=== PATIENT | male | born 1935 | race Caucasian/White ===

== ENCOUNTER 2021-01-21 20:18 | Inpatient (IN) | payer MEDICARE ==
[2021-01-21 22:39] LABS: #Lymphocytes 0.5 thou/uL (1.20-3.40); #Monocytes 0.2 thou/uL (0.11-0.59); #Neutrophils 4.9 thou/uL (1.40-6.50); %Eosinophils 0.4 % (0.0-10.0); %Lymphocytes 9.6 % (21.0-51.0); %Monocytes 2.7 % (0.0-10.0); %Neutrophils 87.4 % (42.0-75.0); Hemoglobin 12.2 g/dL (14.0-18.0); Mean Corpuscular HGB CONC 34.8 g/dL (32.0-36.0); Mean Corpuscular Hemoglobin 32.2 pg (27.0-31.0); Mean Corpuscular Volume 92.3 fL (78.0-98.0); Mean Platelet Volume 7.1 fL (7.4-10.4); Platelet Count 186 thou/uL (130-400); RBC Distribution Width 12.2 % (11.5-14.5); White Blood Cell (WBC) Count 5.6 thou/uL (4.8-10.8)
[2021-01-21 22:44] LABS: INR-International Normal Ratio 0.9; PTT 29.7 sec (22.9-36.1); Prothrombin Time 12.5 sec (12.0-14.7)
[2021-01-21] MEDS ORDERED: Ondansetron PF 4 MG/2 ML Vial IVP PRN (22:45)
[2021-01-21] MEDS ORDERED: Dextrose 50% Abboject 50 ML SYRINGE SLOW IVP PRN (22:45)
[2021-01-21] MEDS ORDERED: Morphine 2 MG/ML VIAL SLOW IVP PRN (22:45)
[2021-01-21] MEDS ORDERED: Dextrose 5% in Water 1,000 ML IV PRN (22:45)
[2021-01-21] MEDS ORDERED: hydrALAZINE 20 MG/ML VIAL SLOW IVP PRN (22:45)
[2021-01-21] MEDS ORDERED: Cyclobenzaprine 10 MG TAB PO PRN (22:48)
[2021-01-21] MEDS ORDERED: traMADol HCl 50 MG TAB PO PRN (22:48)
[2021-01-21 22:54] LABS: Lactic Acid 0.9 mmol/L (0.5-2.2)
[2021-01-21 23:00] LABS: ALT (SGPT) 22 U/L (8-55); AST (SGOT) 53 U/L (5-34); Albumin 2.9 g/dL (3.4-4.8); Alkaline Phosphatase 79 U/L (40-110); Anion Gap 14 mmol/L (10-20); BUN (Urea Nitrogen) 23 mg/dL (8.4-25.7); Calc. Creatinine Clearance 0 mL/min (70-130); Carbon Dioxide 30 mmol/L (23-31); Chloride 95 mmol/L (98-107); Globulin 2.4 g/dL (2.4-3.5); Glucose 144 mg/dL (83-110); Phosphorus 2.3 mg/dL (2.3-4.7); Protein, Total 5.3 g/dL (5.8-8.1); Sodium 136 mmol/L (136-145)
[2021-01-21 23:03] LABS: Calcium 5.8 mg/dL (7.8-10.44); Potassium 2.9 mmol/L (3.5-5.1)
[2021-01-22] MEDS: Sodium Chloride 0.9% 1,000 ML IV SCH ×2 (00:27→14:35)
[2021-01-22] MEDS ORDERED: Potassium Phosphate 30 MMOL in Sodium Chloride 0.9% 250 ML 250 ML IVPB SCH (00:30)
[2021-01-22] MEDS ORDERED: Magnesium 2 GM/50 ML 2 GM in Premix Bag 1 BAG IVPB SCH (00:30)
[2021-01-22] MEDS: Calcium Chloride 13.6 MEQ in Sodium Chloride 0.9% 100 ML IVPB SCH ×2 (00:30→01:58)
[2021-01-22 01:02] VITALS: BMI 24.0
--- NOTE | 2021-01-22 01:28 | HP ---
TRAUMA SURGEON: David Wilkerson MD CONSULTING PHYSICIAN: Dr. Martinez, Neurosurgery. HISTORY OF PRESENT ILLNESS: The patient is an 85-year-old male, who presents falling on Tuesday. The patient reports that he does not know the reason for his fall. He was initially seen earlier today at [place] [facility] and was transferred here as there was a concern for possible central cord syndrome. Family was present for the emergency room evaluation at [place], but not for my evaluation here. It was reported that the patient had bilateral hand paresthesias, and for that reason, central cord syndrome was suspected. Of note, the patient also has left-sided ribs 10 and 11 fractures and a left pleural effusion due to his fall. The emergency room provider at our hospital contacted Neurosurgery, evaluated the spinal films, they were not concerned. They recommended following up in their clinic in 2 weeks and if there was persistent symptoms that they would complete an MRI at that time. No further workup or management is recommended from Neurosurgery this evening. Upon my evaluation, the patient was awake and alert, sitting up a little uncomfortably in the emergency department. He had a C-collar on. Upon my evaluation, the patient had no cervical spinal tenderness and the cervical collar was discontinued. He denied shortness of breath or chest pain. He reports some back pain, especially whenever he coughs. He has a recent family history of COVID infection from the documentation from the outside provider, reports that the patient lost his spouse to COVID just last week and several members of his family are also infected with the virus. The patient did test positive for COVID this evening. It is also reported that he has had some decompensation over the past week as far as his energy level and food consumption. At the time of my evaluation, the patient denied nausea, abdominal pain, and diarrhea. He did report that he is not as strong as he normally is. He did not have any paresthesias at the time of my evaluation and had a generalized weakness. 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 This is not a new finding. He also has a T12 vertebral body fracture that is thought to be pathologic, which is unchanged from the last exam on August 28, 2020. My essential evaluation was that the patient was deconditioned and weakened from COVID infection and had some rib fractures and some mild back pain. He was saturating 95% or better on room air and had no respiratory symptoms. REVIEW OF SYSTEMS: All additional 10-point review of systems negative except as indicated above. PAST MEDICAL HISTORY: Prostate cancer with metastases to the thoracic spine, ribs, mandible, scapula and clavicles; dementia; arthritis; and COPD. PAST SURGICAL HISTORY: Bilateral knee replacements. MEDICATIONS: Unknown. The patient is a poor historian. ALLERGIES: NO KNOWN DRUG ALLERGIES. PHYSICAL EXAMINATION: VITAL SIGNS: Temperature 98.3, pulse 68, respirations 16, oxygen saturation 97% on room air, blood pressure 132/84. PRIMARY SURVEY: Airway intact. Adequate breath sounds bilaterally. 2+ pulses in the bilateral radials, femorals, and DPs. GCS 15. Gross motor and sensation intact. No abrasion, bruising, or external bleeding. SECONDARY SURVEY: HEAD: Normocephalic and atraumatic. No gross palpable skull deformities or tenderness. EYES: Pupils 3 to 2, equal, round, reactive to light bilaterally. ENT: No signs of trauma. C-SPINE: No step-offs or deformities. Nontender. C-collar in place. CHEST: Nontender. No crepitus, no abrasions or ecchymosis noted. ABDOMEN: Soft, nontender, nondistended. PELVIS: Stable to palpation, nontender. No abrasions or ecchymosis noted. RECTAL: Deferred. GENITOURINARY: Normal external genitalia. No blood at the meatus. EXTREMITIES: No gross deformities. No abrasions or ecchymosis noted. 2+ pulses in bilateral radials, femorals, and DPs. BACK/SPINE: No step-offs or deformities or tenderness to palpation of thoracic or lumbar spine. No abrasions or ecchymosis noted. The patient has some left lateral back tenderness. NEURO: The patient does have 5/5 strength in his bilateral upper and lower extremities. He has generalized overall weakness and he is deconditioned. LABORATORY FINDINGS: White count 5.6, hemoglobin 12.5, hematocrit 35.1, platelets 186. INR 0.9. PTT 29.7. Sodium 136, potassium 3.9, chloride 95, bicarb 30, BUN 23, creatinine 1.15, glucose 144. Lactic acid 0.9, calcium 5.8, phosphorus 2.3, magnesium 1.9, total bilirubin 1.0, AST 53, ALT 22, alkaline phosphatase 79, troponin 0.070 from 0.074, albumin 2.9. DIAGNOSTIC FINDINGS: CT scan of the brain demonstrates no CT evidence of acute intracranial process. CT scan of the C-spine demonstrates extensive diffuse osseous metastasis. No evidence of fracture or focal opacity in the left apex, correlate for pneumonia. CT scan of the chest, abdomen, and pelvis demonstrates lower left-sided rib fractures involving the left 10th through 12th ribs with two separate fractures involving the left posterior 10th and 11th fractures with medial fracture fragments demonstrating displacement, small left pleural effusion/pneumothorax which was thought to be passive atelectasis. Minimal patchy densities posterior aspect of the left upper lobe with right lung base also most likely related to volume loss. Pneumonitis of the left upper lobe would be difficult to entirely exclude. No acute findings in the abdomen or pelvis. Extensive and diffuse osseous sclerotic metastatic disease with probable pathologic fracture involving the T12 vertebral body. This is unchanged compared to the prior exam. Cholelithiasis and chronic diverticulosis. ASSESSMENT: 1. Status post mechanical fall from standing, delayed presentation. 2. Left-sided ribs 10 through 12 fractures. 3. Left pleural effusion/hemothorax. 4. Old T12 vertebral body pathological fracture, unchanged from last exam in August 2020. 5. Acute kidney injury, resolved. 6. Bilateral hand paresthesias, waxing and waning. 7. Coronavirus disease positive with no signs of COVID pneumonia at this time. 8. Acute hypokalemia and hypocalcemia. 9. Elevated troponin, etiology unclear. 10. History of metastatic prostate cancer with bone metastases, dementia, arthritis, and chronic obstructive pulmonary disease. PLAN: The patient is admitted to [facility] on the trauma service. He can go to the medical floor. We will provide pain control and monitoring. It is most apparent that the patient is just deconditioned and weak as a result of his COVID. There is no concern for a respiratory COVID pneumonia at this time. The patient with equal and normal strength in the bilateral upper extremities, it is thought that his intermittent bilateral hand paresthesias are likely due to his significant hypocalcemia and hypokalemia. We will provide IV fluid resuscitation as well as replacement of potassium, phos, magnesium, and calcium overnight. Repeat blood work in the morning. As the patient is more sedentary now due to his rib fractures and increased chance of developing a DVT due to his COVID infection, we will start him on Lovenox prophylactically. The patient to work with Physical Therapy and Occupational Therapy tomorrow to determine if he needs placement at acute rehab facility while he recovers from his COVID pneumonia. We will also ask speech language pathology to evaluate the patient's swallowing as he has had a couple of episodes of coughing after drinking water in the emergency department. This patient was discussed with Dr. Wilkerson before this dictation. Job ID: [id number]
--- NOTE | 2021-01-22 03:10 | CON ---
DATE OF CONSULTATION: 01/21/2021 Mr. Simons is an 85-year-old male who was transferred from [place] [facility] following recent fall with findings of rib fractures and hemothorax. He has a history of prostate cancer. He is COVID positive. Unfortunately, his recently from COVID. Our team was consulted due to the patient's reports of subjective hand paresthesias. Per discussion with the emergency department providers, there is no associated weakness or neurologic deficit on exam. Our team has reviewed complete spinal imaging. He has significant cervical degenerative disk disease and degenerative changes, however there are no acute fractures or malalignment. He has sclerotic changes involving the thoracic spine consistent with metastatic disease given his history of prostate cancer. Head CT is negative for acute intracranial abnormalities. Our team does not feel a cervical MRI is necessary at this time given lack of neurologic deficits on exam. We will arrange for outpatient followup in the upcoming weeks for reevaluation and determination if an elective MRI of the cervical spine is indicated. No external orthosis is indicated unless the patient would like a cervical collar for comfort. Job ID: [id number] [facility]
[2021-01-22] MEDS: Acetaminophen 500 MG TAB PO SCH ×4 (04:10→17:18)
[2021-01-22 05:01] LABS: #Lymphocytes 0.9 thou/uL (1.20-3.40); #Monocytes 0.3 thou/uL (0.11-0.59); #Neutrophils 4.1 thou/uL (1.40-6.50); %Basophils 0.1 % (0.0-1.0); %Eosinophils 0.1 % (0.0-10.0); %Lymphocytes 16.2 % (21.0-51.0); %Monocytes 4.8 % (0.0-10.0); %Neutrophils 78.8 % (42.0-75.0); Hemoglobin 12.2 g/dL (14.0-18.0); Mean Corpuscular HGB CONC 34.1 g/dL (32.0-36.0); Mean Corpuscular Hemoglobin 31.6 pg (27.0-31.0); Mean Corpuscular Volume 92.6 fL (78.0-98.0); Mean Platelet Volume 7.4 fL (7.4-10.4); Platelet Count 189 thou/uL (130-400); RBC Distribution Width 12.4 % (11.5-14.5); Red Blood Cell (RBC) Count 3.87 mill/uL (4.70-6.10); White Blood Cell (WBC) Count 5.2 thou/uL (4.8-10.8)
[2021-01-22 05:41] LABS: ALT (SGPT) 21 U/L (8-55); AST (SGOT) 49 U/L (5-34); Albumin 2.9 g/dL (3.4-4.8); Alkaline Phosphatase 78 U/L (40-110); Anion Gap 19 mmol/L (10-20); BUN (Urea Nitrogen) 24 mg/dL (8.4-25.7); Calc. Creatinine Clearance 47 mL/min (70-130); Calcium 7.1 mg/dL (7.8-10.44); Carbon Dioxide 29 mmol/L (23-31); Chloride 97 mmol/L (98-107); Globulin 2.4 g/dL (2.4-3.5); Glucose 141 mg/dL (83-110); Magnesium 1.9 mg/dL (1.6-2.6); Phosphorus 3.9 mg/dL (2.3-4.7); Potassium 2.9 mmol/L (3.5-5.1); Protein, Total 5.3 g/dL (5.8-8.1); Sodium 142 mmol/L (136-145)
[2021-01-22] MEDS ORDERED: Potassium Chloride 40 MEQ in Sodium Chloride 0.9% 250 ML 250 ML IVPB SCH (07:30)
[2021-01-22] MEDS ORDERED: FLU VACC QS2020-21(65YR UP)/PF 240 MCG/0.7 ML SYRINGE IM ONE (09:00)
[2021-01-22] MEDS ORDERED: Abiraterone Acetate [Zytiga] 250 MG Tablet PO SCH (09:00)
[2021-01-22] MEDS ORDERED: Famotidine/PF 20 mg/2ml Vial SLOW IVP SCH (09:00)
[2021-01-22] MEDS: Polyethylene Glycol 3350 17 GM Packet PO SCH (09:24)
[2021-01-22] MEDS: Gabapentin 100 MG CAP PO SCH ×3 (09:25→21:32)
[2021-01-22] MEDS: Senokot S 8.6-50 MG TAB PO SCH ×2 (09:26→21:32)
[2021-01-22] MEDS: Levothyroxine Sodium 112 MCG TAB PO SCH (09:26)
[2021-01-22] MEDS: Enoxaparin Sodium 40 MG/0.4 ML SYRINGE SC SCH (09:26)
[2021-01-22] MEDS: Terazosin HCl 5 MG CAP PO SCH (09:30)
[2021-01-22] MEDS: predniSONE 5 MG TAB PO SCH (09:31)
[2021-01-22] MEDS: Lisinopril 10 MG TAB PO SCH (09:32)
--- NOTE | 2021-01-22 11:28 | RAD ---
RADIOGRAPH CHEST 1 VIEW: DATE: 01/22/2021 HISTORY: 85-year-old male follow-up left pleural effusion FINDINGS: There are no airspace densities, pulmonary edema, pneumothorax, or cardiomegaly. Minimal blunting of left lateral costophrenic angle probably reflects the tiny left pleural effusion demonstrated on recent CT. Diffuse osteoblastic lesions in the entire visualized skeleton.. IMPRESSION: 1. No acute cardiopulmonary findings. 2. Probable tiny left pleural effusion. 3. 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
--- NOTE | 2021-01-22 18:43 | PRG ---
DATE OF SERVICE: 01/22/2021 SUBJECTIVE: This is an 85-year-old gentleman who is hospital day #2, status post mechanical fall 4 days ago. The patient was also diagnosed with COVID. The patient has a known prostate cancer with bone metastasis. The patient is currently awake, alert, hard of hearing. The patient denies any cough or shortness of breath. The patient's pain is controlled at this time. The patient is tolerating a regular diet. The patient had no overnight events. I did speak with the patient's [id number], Tammie to give her an update. The patient was under the impression that he was being sent over for a MRI of his spine. Neurosurgery was consulted and recommended followup in the clinic in 2 weeks. OBJECTIVE: VITAL SIGNS: Temperature 97.7, pulse 66, respirations 20, SpO2 of 94% on room air, blood pressure 162/79. HEENT: Head is atraumatic, normocephalic. Pupils are equal bilateral, mucous membranes moist. NECK: Normal range of motion of neck. RESPIRATORY: Good inspiratory and expiratory effort, respirations are even and nonlabored. The patient is not dyspneic. CARDIAC: Regular rate, regular rhythm. ABDOMEN: Soft, nontender, mildly distended. EXTREMITIES: Moves all extremities. No focal deficits. SKIN: Warm, dry, pink. LABORATORY DATA: WBC 5.2, RBC 3.87, hemoglobin 12.2, hematocrit 35.9, platelets 189. Sodium 142, potassium 2.9, chloride 97, BUN 24, creatinine 1.14, estimated GFR 61, glucose 141, calcium 7.1, corrected calcium 8.0, phosphorus 3.9, AST 49, ALT 21, alkaline phos 78, albumin 2.9. DIAGNOSTICS: There is no new diagnostics to review today. ASSESSMENT: 1. Status post mechanical fall from standing, delayed presentation. 2. Left-sided rib fractures 10 through 12. 3. Left pleural effusion/hemothorax, stable. 4. Old T12 vertebral body pathologic fracture, unchanged from last exam. 5. Acute kidney injury, resolved. 6. Bilateral hand paresthesia. 7. Pradhan virus disease. 8. Hypocalcemia, resolved. 9. History of prostate cancer with bone metastasis, dementia, arthritis, and chronic obstructive pulmonary disease. PLAN: We will make patient inpatient status as the patient's family is pending placement decision. Continue pain control. Continue aggressive pulmonary toilet with the use of incentive spirometer every hour while awake. Repeat labs in the morning. Replace electrolytes. Regular diet with modifications per Speech Therapy. PT and OT. The patient was examined by Dr. Contreras. Job ID: [id number] [facility]
[2021-01-23] MEDS: Acetaminophen 500 MG TAB PO SCH ×5 (00:33→16:38)
[2021-01-23] MEDS: Sodium Chloride 0.9% 1,000 ML IV SCH ×2 (00:34→00:35)
[2021-01-23 06:24] LABS: Anion Gap 11 mmol/L (10-20); BUN (Urea Nitrogen) 16 mg/dL (8.4-25.7); Calc. Creatinine Clearance 56 mL/min (70-130); Calcium 6.1 mg/dL (7.8-10.44); Carbon Dioxide 33 mmol/L (23-31); Chloride 101 mmol/L (98-107); Glucose 125 mg/dL (83-110); Magnesium 1.9 mg/dL (1.6-2.6); Phosphorus 1.4 mg/dL (2.3-4.7); Potassium 2.5 mmol/L (3.5-5.1); Sodium 142 mmol/L (136-145)
[2021-01-23] MEDS ORDERED: Potassium Phosphate 30 MMOL in Sodium Chloride 0.9% 250 ML 250 ML IVPB SCH (06:45)
[2021-01-23] MEDS ORDERED: Magnesium 2 GM/50 ML 2 GM in Premix Bag 1 BAG IVPB SCH (06:45)
[2021-01-23] MEDS ORDERED: Calcium Gluconate 9.2 MEQ in Sodium Chloride 0.9% 100 ML IVPB SCH (07:30)
[2021-01-23] MEDS ORDERED: Potassium Chloride 20 MEQ TAB PO SCH (08:00)
[2021-01-23] MEDS: Enoxaparin Sodium 40 MG/0.4 ML SYRINGE SC SCH (08:38)
[2021-01-23] MEDS: Senokot S 8.6-50 MG TAB PO SCH ×2 (08:39→20:53)
[2021-01-23] MEDS: Levothyroxine Sodium 112 MCG TAB PO SCH (08:39)
[2021-01-23] MEDS: Gabapentin 100 MG CAP PO SCH ×3 (08:39→20:46)
[2021-01-23] MEDS: Terazosin HCl 5 MG CAP PO SCH (08:39)
[2021-01-23] MEDS: predniSONE 5 MG TAB PO SCH (08:40)
[2021-01-23] MEDS: Polyethylene Glycol 3350 17 GM Packet PO SCH (08:41)
[2021-01-23] MEDS: Lisinopril 10 MG TAB PO SCH (08:44)
[2021-01-23] MEDS: traMADol HCl 50 MG TAB PO PRN (10:48)
--- NOTE | 2021-01-23 17:58 | PRG ---
DATE OF SERVICE: 01/23/2021 SUBJECTIVE: This is an 85-year-old gentleman, hospital day #3, status post mechanical fall 5 days ago. The patient was diagnosed with COVID. The patient continues to have no oxygen requirements. The patient denies any shortness of breath. The patient continues to tolerate a regular diet and is eating very well. The patient did work with Physical Therapy today. The patient's pain is well controlled at this time. OBJECTIVE: VITAL SIGNS: Temperature 97.9, pulse 75, respirations 18, SpO2 95% on room air, blood pressure 136/75. HEENT: Unremarkable. RESPIRATORY: Good inspiratory and expiratory effort, respirations are even and nonlabored. CARDIAC: Regular rate regular rhythm. EXTREMITIES: Moves all extremities. No focal deficits. SKIN: Warm, dry, normal color. LABORATORY DATA: WBC 5.2, RBC 3.87, hemoglobin 12.2, hematocrit 35.9, platelets 189. Sodium 142, potassium 2.5, chloride 101, creatinine 0.96, estimated GFR 74, glucose 125, calcium 6.1, phosphorus 1.4, magnesium 1.9. DIAGNOSTICS: There are no new diagnostics to review today. 1. Status post mechanical fall from standing, delayed presentation. 2. Left rib fractures, 10 through 12. 3. Left pleural effusion versus hemothorax, stable. 4. Old T12 vertebral body pathologic fracture, unchanged. 5. Acute kidney injury, resolved. 6. Bilateral hand paresthesia. 7. Coronavirus disease. 8. Hypokalemia. 9. Hypocalcemia. 10. Hypophosphatemia. 11. History of prostate cancer with bone metastasis, dementia, arthritis, and chronic obstructive pulmonary disease. PLAN: We will replace electrolytes IV and add oral potassium daily for 3 days. Continue pain control. Continue aggressive pulmonary toilet. Repeat labs in the morning to ensure that his electrolytes are stable. PT and OT. Likely, the patient will be discharged home tomorrow on hospice care if his electrolytes are stabilized. The plan was discussed with the attending. Job ID: [id number]
[2021-01-24] MEDS: Acetaminophen 500 MG TAB PO SCH ×4 (00:42→17:23)
[2021-01-24 06:59] LABS: Anion Gap 13 mmol/L (10-20); BUN (Urea Nitrogen) 12 mg/dL (8.4-25.7); Calc. Creatinine Clearance 72 mL/min (70-130); Calcium 6.3 mg/dL (7.8-10.44); Carbon Dioxide 31 mmol/L (23-31); Chloride 100 mmol/L (98-107); Glucose 114 mg/dL (83-110); Magnesium 1.9 mg/dL (1.6-2.6); Phosphorus 1.7 mg/dL (2.3-4.7); Potassium 2.7 mmol/L (3.5-5.1); Sodium 141 mmol/L (136-145)
[2021-01-24] MEDS ORDERED: SODIUM CHLORIDE 0.9% IVPB SCH (08:15)
[2021-01-24] MEDS ORDERED: POTASSIUM PHOSPHATE IVPB SCH (08:15)
[2021-01-24] MEDS: Lisinopril 10 MG TAB PO SCH (08:23)
[2021-01-24] MEDS: Potassium Chloride 20 MEQ TAB PO SCH (08:23)
[2021-01-24] MEDS: Terazosin HCl 5 MG CAP PO SCH (08:23)
[2021-01-24] MEDS: predniSONE 5 MG TAB PO SCH (08:24)
[2021-01-24] MEDS: Senokot S 8.6-50 MG TAB PO SCH ×2 (08:24→20:18)
[2021-01-24] MEDS: Gabapentin 100 MG CAP PO SCH ×3 (08:24→20:18)
[2021-01-24] MEDS: Enoxaparin Sodium 40 MG/0.4 ML SYRINGE SC SCH (08:24)
[2021-01-24] MEDS: Levothyroxine Sodium 112 MCG TAB PO SCH (08:24)
[2021-01-24] MEDS: Polyethylene Glycol 3350 17 GM Packet PO SCH (08:24)
[2021-01-24] MEDS: traMADol HCl 50 MG TAB PO PRN (11:11)
[2021-01-24] MEDS ORDERED: Calcium Chloride 13.6 MEQ in Sodium Chloride 0.9% 100 ML IVPB SCH (16:00)
--- NOTE | 2021-01-24 16:23 | PRG ---
DATE OF SERVICE: 01/24/2021 SUBJECTIVE: Mr. Theo Simons is an 85-year-old male patient, hospital day #4, status post mechanical fall day #5. The patient is COVID positive, lives at home with the family and Hospice. Currently, has metastatic prostate cancer. The patient is sitting up in bed. No acute pain. Coughing without pain. Taking deep big breaths. No respiratory distress. The patient is eating regular diet and is able to work with physical therapy. OBJECTIVE: VITAL SIGNS: Temperature 98.2, pulse 90, respiratory rate 18, O2 saturation 92 on room air, and blood pressure 142/77. GENERAL: Sitting upright in bed, in no acute distress. RESPIRATORY: Speaking full sentences. In no acute distress. Nonlabored. CARDIAC: Regular rate and rhythm. EXTREMITIES: Moving all extremities, diminished sensation and no paraesthesia. NEUROLOGIC: A and O x1. DIAGNOSTIC STUDIES: No new diagnostic imaging. ASSESSMENT: 1. Status post mechanical fall, standing, delayed presentation. 2. Left rib fractures 10 through 12. 3. Left pleural effusion versus hemothorax, stable. 4. Old chronic T12 vertebral body pathological fracture, unchanged. 5. Acute kidney injury, resolved. 6. Bilateral hand paresthesia, resolved. 7. Coronavirus disease, improving. 8.hypokalemia , improving.Hypocalcemia, improving. 10. Metastatic prostate cancer, dementia, arthritis, chronic obstructive pulmonary disease. PLAN: Discussed with the son, DNR. We will plan on discharging the patient home tomorrow after electrolytes are repleted. The patient's paraesthesia has resolved per the patient, most likely due to electrolytes. Continue PT/OT, pulmonary toilet, replete afternoon labs, aggressively replete electrolytes. The patient will be discharged home tomorrow with hospice care. Job ID: [id number] [facility]
[2021-01-24 19:20] LABS: Anion Gap 13 mmol/L (10-20); BUN (Urea Nitrogen) 14 mg/dL (8.4-25.7); Calc. Creatinine Clearance 66 mL/min (70-130); Calcium 6.6 mg/dL (7.8-10.44); Carbon Dioxide 30 mmol/L (23-31); Chloride 100 mmol/L (98-107); Glucose 233 mg/dL (83-110); Magnesium 1.8 mg/dL (1.6-2.6); Phosphorus 3.8 mg/dL (2.3-4.7); Potassium 3.4 mmol/L (3.5-5.1); Sodium 140 mmol/L (136-145)
[2021-01-24] MEDS ORDERED: Potassium Phosphate 30 MMOL in Sodium Chloride 0.9% 250 ML 250 ML IVPB SCH (20:30)
[2021-01-24] MEDS ORDERED: Magnesium 2 GM/50 ML 2 GM in Premix Bag 1 BAG IVPB SCH (20:30)
[2021-01-25] MEDS: Acetaminophen 500 MG TAB PO SCH ×3 (00:34→11:02)
[2021-01-25 05:38] LABS: Anion Gap 12 mmol/L (10-20); BUN (Urea Nitrogen) 12 mg/dL (8.4-25.7); Calc. Creatinine Clearance 75 mL/min (70-130); Calcium 6.2 mg/dL (7.8-10.44); Carbon Dioxide 27 mmol/L (23-31); Chloride 103 mmol/L (98-107); Glucose 126 mg/dL (83-110); Magnesium 1.9 mg/dL (1.6-2.6); Phosphorus 3.7 mg/dL (2.3-4.7); Potassium 3.7 mmol/L (3.5-5.1); Sodium 138 mmol/L (136-145)
[2021-01-25] MEDS: Terazosin HCl 5 MG CAP PO SCH (07:50)
[2021-01-25] MEDS: Senokot S 8.6-50 MG TAB PO SCH (07:50)
[2021-01-25] MEDS: Enoxaparin Sodium 40 MG/0.4 ML SYRINGE SC SCH (07:50)
[2021-01-25] MEDS: Gabapentin 100 MG CAP PO SCH (07:52)
[2021-01-25] MEDS: Potassium Chloride 20 MEQ TAB PO SCH (07:52)
[2021-01-25] MEDS: predniSONE 5 MG TAB PO SCH (07:52)
[2021-01-25] MEDS: Lisinopril 10 MG TAB PO SCH (07:53)
[2021-01-25] MEDS: Polyethylene Glycol 3350 17 GM Packet PO SCH (07:53)
[2021-01-25] MEDS: Levothyroxine Sodium 112 MCG TAB PO SCH (07:53)
[2021-01-25] MEDS: Potassium Chloride 10 MEQ in Premix Bag 1 BAG IVPB SCH ×3 (11:01→13:58)
[2021-01-25 11:10] VITALS: BP 156/81; TEMP 98.5
--- NOTE | 2021-01-26 12:42 | DIS ---
DATE OF ADMISSION: 01/22/2021 DATE OF DISCHARGE: 01/25/2021 PROCEDURES PERFORMED: None. ADMITTING DIAGNOSES: 1. Pain management, status post delayed fall with old rib fractures, 10 through 12. 2. Left pleural effusion, hemothorax. 3. Old T12 vertebral body fracture. 4. Acute kidney injury. 5. Bilateral paresthesia. 6. Electrolyte abnormalities. 7. Coronavirus. HOSPITAL COURSE: This 85-year-old male presented falling on Tuesday, 01/18. The patient was confused on admission. He was not sure how he fell. The patient was initially seen at [place] [facility] and was transferred to [facility] with concern for possible central cord syndrome. Family was present in the room for evaluation at [place], not for the evaluation here at [facility]. The patient was transferred from [place] due to concern of bilateral paraesthesia and central cord syndrome was suspected. The patient also had left-sided rib fractures 10 and 11 and a left pleural effusion. Neurosurgery was consulted at [facility], Neurosurgery does not recommend any acute intervention, they recommended to follow up in two weeks. At that time, they can discuss repeat MRI. No further workup was required by Neurosurgery during this hospital course. The patient tested COVID positive on 01/21. The patient recently lost his to COVID and has been depressed for several weeks and has not been taking it much per the family. Labs on admission: Potassium 2.9, sodium 142, chloride 97, bicarbonate 29, BUN 4, creatinine 1.4, glucose 141, calcium 7.1, phosphorus 3.9, magnesium 1.9. The patient's electrolytes were aggressively repleted. Labs at time of discharge: Sodium 138, potassium 3.7, carbon dioxide 103, bicarb 27, BUN 12, creatinine 0.7, glucose 126, calcium 6.6, phosphorus 3.7, magnesium 1.9. The patient was administered 2 g magnesium and 2 g of calcium before discharge today. The patient that his paresthesia was much improved at the time of discharge. The patient's sensation intact, upper and lower extremities. The patient was started on a regular diet and voiding spontaneously and working with physical therapy at the time of discharge. I discussed this case with the patient's son. I instructed the patient's son to make a followup appointment with Neurosurgery, and I also instructed the son that they need to have him on a well-balanced diet with a multivitamin supplement and replete his electrolytes. This is the most likely cause of his bilateral paresthesia. PHYSICAL EXAMINATION: VITAL SIGNS: At time of discharge, temp 98, pulse 73, respiratory rate 16, 94 on room air, blood pressure 156/81. GENERAL: In no acute distress. A and O x1. ABDOMEN: Soft, nontender. CHEST: Equal rise and fall. No accessory muscle use. Equal breath sounds bilateral. No murmurs, rubs, or gallops. MSK: Sensation intact upper and lower extremities. +2 pulses DPs and PTs. ASSESSMENT: 1. Status post mechanical fall with delayed presentation. 2. Left-sided rib fractures, 10 through 12. 3. Left pleural effusion, hemothorax. 4. Old T12 vertebral body fracture, unchanged from last exam in August 2020. 5. Acute kidney injury, resolved. 6. Bilateral had paresthesias, resolved. 7. Coronavirus positive on 01/21. 8. Hyperkalemia. 9. Hypercalcemia, resolved. 10. Elevated troponin, unclear etiology. 11. History of metastatic prostate cancer with bone metastasis, dementia, arthritis, and chronic obstructive pulmonary disease. PLAN: The patient will follow up with Neurosurgery in 4 weeks. Repeat MRI if needed. Start on a well-balanced diet, multivitamin daily. The patient will be discharged to his son's house, DNR, and on hospice care. Job ID: [id number] [facility]
== END 2021-01-25 14:15 | disposition hospice, home (50) | DRG 199 ==
LOC: ERS 20:18 → 2SW 22:45 → OBSVTOIN 01-22 13:42
PROVIDERS: ADMIT Surgery; ATTEND Surgery
DX: S27.1XXA Traumatic hemothorax, initial encounter (principal); U07.1 COVID-19; E87.0 Hyperosmolality and hypernatremia; S22.42XA Multiple fractures of ribs, left side, initial encounter for closed fracture; N17.9 Acute kidney failure, unspecified; J90 Pleural effusion, not elsewhere classified; C79.89 Secondary malignant neoplasm of other specified sites; C79.51 Secondary malignant neoplasm of bone; M84.48XA Pathological fracture, other site, initial encounter for fracture; J44.0 Chronic obstructive pulmonary disease with (acute) lower respiratory infection; Z66 Do not resuscitate; Z51.5 Encounter for palliative care; E87.6 Hypokalemia; I10 Essential (primary) hypertension; C61 Malignant neoplasm of prostate; R77.8 Other specified abnormalities of plasma proteins; K80.20 Calculus of gallbladder without cholecystitis without obstruction; R20.2 Paresthesia of skin; K57.90 Diverticulosis of intestine, part unspecified, without perforation or abscess without bleeding; E83.39 Other disorders of phosphorus metabolism; E83.51 Hypocalcemia; F03.90 Unspecified dementia, unspecified severity, without behavioral disturbance, psychotic disturbance, mood disturbance, and anxiety; Z96.653 Presence of artificial knee joint, bilateral; M19.90 Unspecified osteoarthritis, unspecified site; J44.9 Chronic obstructive pulmonary disease, unspecified; Z85.830 Personal history of malignant neoplasm of bone; Z85.46 Personal history of malignant neoplasm of prostate; Z79.899 Other long term (current) drug therapy; Z79.890 Hormone replacement therapy; Z83.1 Family history of other infectious and parasitic diseases; W18.30XA Fall on same level, unspecified, initial encounter
CPT/HCPCS: 36415; 71045; 80048; 80053; 83605; 83735; 84100; 85025; 96365; 96366; 96367; 96372; 96375; 99285; G0378; J1650; J2001; J3475; J3480; J3490; J7050; J7512; S0028